=== PATIENT | male | born 1980 | race Caucasian/White ===

== ENCOUNTER 2017-01-09 12:39 | Day surgery (SDC) | payer BC ==
[2017-01-04 14:48] VITALS: BMI 32.1
[~2017-01-09 12:39] MED LIST: LACTATED RINGERS 1,000 ML IV SCH; LIDOCAINE 1% 20 ML VIAL (10MG/ML) FOR IV START INTRADERMA PRN
[2017-01-09 13:03] VITALS: TEMP 98
[2017-01-09] MEDS ORDERED: PROPOFOL 10 MG/ML 20 ML VIAL IV ONE (13:37)
[2017-01-09 14:21] VITALS: BP 115/68; PULSE 56; RESP 16
--- NOTE | 2017-01-09 14:21 | P.PCN ---
Date of Procedure: 01/09/17 Preoperative Diagnosis: Postoperative Diagnosis: Procedure(s) Performed: Procedure: Esophagogastroduodenoscopy and biopsy. Preoperative diagnosis: Dysphagia. Postoperative diagnosis: 1. Small sliding hiatal hernia and LA grade B distal esophagitis but no strictures or Garrett's esophagus. 2. Mild gastritis. 3. Multiple biopsies obtained from the duodenum, antrum and esophagus. Preparation sedation: Was provided by anesthesia. Brief clinical history: The patient is a 36-year-old male who is referred for this evaluation because of intermittent dysphagia. The patient has history of chronic reflux and has required therapy with PPI in the past, however, recently he takes antacids as needed. No alarm symptoms such as bleeding or weight loss. No anemia. This evaluation is to assess for complicated reflux disease or other pathology. Procedure: With the patient on his left lateral decubitus position and after informed consent and adequate sedation, I passed the Olympus-GIF 160 video upper endoscope through the cricopharyngeus down the esophagus. GE junction was around 39-40 cm from the incisors and there was a small sliding hiatal hernia. There were short erosions and small superficial punctate ulcerations in the distal esophagus consistent with LA grade B distal esophagitis, but there were no strictures or Garrett's esophagus. The endoscope was then passed into the stomach which was insufflated with air and inspected in detail including the retroflex view in the cardia. There was some mottling and erythema in the antrum but no ulcers or erosions. Pyloric channel, duodenal bulb, post bulbar area and descending duodenum showed minimal erythema. I obtained biopsies from the duodenum, antrum and esophagus then the endoscope was withdrawn. The patient tolerated the procedure well. Plan: The patient was reassured. I suggested that he follow antireflux diet and measures and go back on a regular acid suppressive therapy regimen until we get the biopsy results and make further plans based on his course and biopsy results. He will follow up with you as planned and I will be happy to see in the office if his symptoms persist. The possibility of eosinophilic esophagitis and motility disorders will be kept in mind. Implants: Indications for Procedure: Operative Findings: Description of Procedure:
== END 2017-01-09 14:33 | disposition home or self-care (01) ==
LOC: ORWHC2ENDO 12:39
DX: K21.0 Gastro-esophageal reflux disease with esophagitis (principal); K20.0 Eosinophilic esophagitis; K29.50 Unspecified chronic gastritis without bleeding; K44.9 Diaphragmatic hernia without obstruction or gangrene
CPT/HCPCS: 88305; 88342; 43239; J2704

== ENCOUNTER → 2018-06-08 | Outpatient (CLI) | payer BC ==
--- NOTE | 2018-06-08 10:58 | US ---
EXAMINATION TYPE: US liver DATE OF EXAM: 06/08/2018 COMPARISON: NONE CLINICAL HISTORY: R74.8 Abnormal levels. Elevated LFT's EXAM MEASUREMENTS: Liver Length: 16.7 cm . Normal less than 15.5 cm. Gallbladder Wall: 0.3 cm CBD: 0.3 cm Right Kidney: 11.6 x 5.9 x 5.0 cm Pancreas: Obscured by bowel gas Liver: Difficult to penetrate Gallbladder: wnl Evidence for sonographic Ellsworth's sign: No CBD: wnl Right Kidney: wnl, lower pole gassed out IMPRESSION: 1. Mild fatty infiltration of the liver. Mild hepatomegaly is present.
== END ==
LOC: RADUSWWP 10:27
PROVIDERS: ATTEND Family Medicine
DX: K76.0 Fatty (change of) liver, not elsewhere classified (principal); R16.0 Hepatomegaly, not elsewhere classified
CPT/HCPCS: 76705

== ENCOUNTER 2018-06-21 07:48 | Day surgery (SDC) | payer BC ==
[2018-06-19 10:46] VITALS: BMI 34.9
[~2018-06-21 07:48] MED LIST changes: +DEXAMETHASONE SOD PHOSPHATE 4 MG/ML 1 ML VIAL IV ONE; +FAMOTIDINE 20 MG/2 ML VIAL IV ONE; +HYDROmorphone 0.5 MG/0.5 ML SYRINGE IVP PRN; -LIDOCAINE 1% 20 ML VIAL (10MG/ML) FOR IV START INTRADERMA PRN; +MORPHINE SULFATE 2 MG/ML SYRINGE IV PRN; +Pre Op ABX Message 1 EACH MISC MISCELLANE ONE; +ceFAZolin 1,000 MG in DEXTROSE/WATER 1 50ML.BAG IV ONE
[2018-06-21] MEDS: OXYMETAZOLINE 0.05% NASL SPRAY 1 SPRAY BOTTLE NASAL ONE ×5 (08:06→08:32)
[2018-06-21] MEDS ORDERED: LIDOCAINE 1% 20 ML VIAL (10MG/ML) FOR IV START INTRADERMA ONE (08:15)
[2018-06-21] MEDS ORDERED: DEXAMETHASONE SOD PHOSPHATE 10 MG/ML 1 ML VIAL IV ONE (08:27)
[2018-06-21] MEDS ORDERED: ONDANSETRON 4 MG/2 ML VIAL IVP ONE (08:27)
[2018-06-21] MEDS ORDERED: MIDAZOLAM 2 MG/2 ML VIAL ONE (09:29)
[2018-06-21] MEDS ORDERED: PROPOFOL 10 MG/ML 20 ML VIAL IV ONE (09:29)
[2018-06-21] MEDS ORDERED: LIDOCAINE 1% INJ 10MG/ML (20 ML MDV) ONE (09:29)
[2018-06-21] MEDS ORDERED: DEXAMETHASONE SOD PHOS (MDV) 100 MG/10 ML VIAL ONE (09:29)
[2018-06-21] MEDS ORDERED: SUCCINYLCHOLINE CHLORIDE VIAL 200 MG/10 ML VIAL IV ONE (09:29)
[2018-06-21] MEDS ORDERED: BUPIVACAIN-EPI 0.5%-1:200,000 30 ML VIAL SQ ONE ×2 (09:29)
[2018-06-21] MEDS ORDERED: LIDOCAINE 1%-EPI 1:100,000 20 ML VIAL SQ ONE (09:29)
[2018-06-21] MEDS ORDERED: fentaNYL (PF) 50 MCG/ML 2 ML AMP ONE (09:29)
[2018-06-21] MEDS ORDERED: BACITRACIN OINT 1 EACH PACKET TOPICAL ONE (10:22)
--- NOTE | 2018-06-21 10:43 | P.OP ---
Date of Procedure: 06/21/18 Preoperative Diagnosis: Deviated nasal septum Bilateral hypertrophy of inferior nasal turbinates Obstructive sleep apnea syndrome Postoperative Diagnosis: Same Procedure(s) Performed: Septoplasty Bilateral submucosal resection of inferior turbinates with outfracturing and compression Anesthesia: POLO Surgeon: Blu Christianson Estimated Blood Loss (ml): 10 Pathology: other (Sinonasal) Condition: stable Disposition: PACU Indications for Procedure: This patient presented to the office with persistent nasal obstruction. The patient's intolerant on CPAP because of his nasal obstruction. He has tried cortisone nasal sprays antibiotics and many other things without any improvement. Due to the fact that he was a medical failure and his nasal obstruction is making his CPAP intolerant along with just being bothered by chronic mouth breathing septoplasty and turbinate surgery was recommended. All risks, benefits, and alternative therapies were discussed. Consent was obtained and all questions were answered. Operative Findings: This patient had a significant deviated nasal septum. The inferior turbinates were large and obstructive. Description of Procedure: This patient was taken to the operative room and placed in the supine position. A general inhalation anesthetic was administered to the patient by the department of anesthesia with a functioning IV line in place. The patient was monitored throughout the entire case by the department of anesthesia. The eyes were taped shut for protection. The patient was placed in a slight reverse Trendelenburg position. The patient had previously utilize Afrin nasal spray preoperatively. The nose was evaluated and the septum lateral nasal wall and inferior turbinates were injected with lidocaine 1% with epinephrine 1 100, 000 bilaterally. Approximately 10 minutes were allowed wait for full vasoconstrictive effects to take place. At this point a caudal incision was made over the caudal portion of the left septum down to the mucoperichondrium. A mucoperichondrial flap was elevated on the left side and dissection was carried with use of tunnels posteriorly. We then made a crossover incision through the cartilage to the contralateral side and for the mucoperichondrial flap development was performed to the extent of visualization on the contralateral side. After the cartilage was freed with use of several crosshatching incisions and removal of some redundant strips of septal cartilage, the septum was straightened and placed back in the midline. The septum was sutured fixated to the ovarian groove. Excellent straightening occurred and the septum was visibly straight. Incision was closed with a 40 rapid Vicryl. We utilized a running nonlocking fashion for closure of the incision. A quilting stitch was used to reapproximate the septal flaps with use of a 40 rapid Vicryl. Intranasal splints were inserted and fixated at the end of the case. We utilized Ríos nasal splints. Bilateral Merocel sponge packs were placed There will be removed and the patient returns to the office. Attention was then paid to the inferior turbinates. The bilateral inferior turbinates were hypertrophic and obstructive. We entered the anterior portion of the inferior turbinates with use of a microdebrider. We remove bone and submucosal elements with use of a microdebrider bilaterally. The inferior turbinates underwent a submucosal resection with removal of submucosal tissue and bone. We obtained a much better and normal in size for breathing. The inferior turbinates were then outfractured and compressed with a Boyes nasal elevator. Excellent airway was obtained and was symmetric bilaterally. No bleeding was encountered.
[2018-06-21 10:46] VITALS: TEMP 97.2
[2018-06-21] MEDS ORDERED: HYDROcodone/APAP 10-325MG 1 EACH TAB PO ONE (12:09)
[2018-06-21 12:37] VITALS: RESP 16
[2018-06-21 13:37] VITALS: BP 136/70; PULSE 58
== END 2018-06-21 13:39 | disposition home or self-care (01) ==
LOC: OR 07:48
PROVIDERS: ATTEND Otolaryngology
DX: J34.2 Deviated nasal septum (principal); J34.3 Hypertrophy of nasal turbinates; G47.33 Obstructive sleep apnea (adult) (pediatric); Z87.891 Personal history of nicotine dependence; I10 Essential (primary) hypertension; K21.9 Gastro-esophageal reflux disease without esophagitis; Z79.899 Other long term (current) drug therapy
CPT/HCPCS: 30520; 30140; 88300; J2250; J0330; J1100 ×2; J2405; J2001; J3010; J0690; J2704

== ENCOUNTER → 2018-08-01 | Outpatient (CLI) | payer BC ==
--- NOTE | 2018-08-05 22:49 | ENG ---
ELECTRONYSTAGMOGRAM REPORT DATE OF SERVICE: 08/01/2018 VIDEO ELECTRONYSTAGMOGRAPHIC REPORT: AGE: 38 VNG INDICATIONS: Vertigo and other dizziness onset 15 years ago, associated initially with the toothache of sudden onset and improving. Comes and goes once a month or so and can last 6-12 hours at a time. Dizziness can occur with position changes such as rolling over in bed, right or left, going from a lying to seated position, looking up or head back position, bending over, head down position, moving the head, when driving in the car. Patient denies any hearing loss. Has fullness in the right ear and no tinnitus. Associated symptoms can be lightheadedness and nausea. Medications include lisinopril. VNG FINDINGS: SPONTANEOUS NYSTAGMUS: @@ SACCADES: Saccades show intact peak velocities, accuracies and latencies. GAZE TEST: Gaze with fixation shows no nystagmus in any of the directions of gaze including centrally with vision denied. SINUSOIDAL TRACKING: Tracking shows no break-ups at faster or slower speeds. OKN TEST: Optokinetic nystagmus shows no significant asymmetry. ARIAN-HALLPIKE TEST: Arian-Hallpike maneuvers are negative bilaterally. POSITION TEST: Static position testing shows no nystagmus in any of the positions including sitting, supine, head right, head left, right side and left side, both with eyes opened and with vision denied. CALORIC TEST: Caloric testing showed the patient to become severely dizzy and vomiting with cool air in the right ear and the patient refused further testing so it is indeterminate. IMPRESSION: VNG results were limited by patient having severe dizziness and vomiting on the first right cool caloric test and refused further testing. Otherwise, this is an unremarkable VNG study. MMODL / IJN: [id number] /
== END ==
LOC: NEUROMAIN 06:47
PROVIDERS: ATTEND Otolaryngology
DX: R42 Dizziness and giddiness (principal); R11.10 Vomiting, unspecified
CPT/HCPCS: 92537; 92540